=== PATIENT | male | born 1985 | race Caucasian/White ===

== ENCOUNTER 2025-02-09 15:56 | Emergency (ER) | payer MEDICAID ==
[~2025-02-09] VITALS: Ht 165.1 cm; Wt 63.5 kg
[2025-02-09 16:41] VITALS: BP 134/71; TEMP 98.2; O2SAT 97
[2025-02-09] MEDS ORDERED: AMOX875T2 PO (17:52)
[2025-02-09] MEDS ORDERED: BENZ-13 PO (17:52)
[2025-02-09] MEDS ORDERED: AMOX-430 PO (19:10)
== END 2025-02-09 19:27 | disposition home or self-care (01) ==
LOC: ER 16:02
DX: J06.9 Acute upper respiratory infection, unspecified (principal); R05.9 Cough, unspecified; R50.9 Fever, unspecified; Z91.048 Other nonmedicinal substance allergy status
CPT/HCPCS: 71045-TC